=== PATIENT | female | born 1995 ===

== ENCOUNTER 2021-01-06 21:47 | Emergency (ER) | payer BC ==
[2021-01-06 22:56] VITALS: BP 117/79
[2021-01-07 00:36] LABS: HCG Qualitative,Urine Negative (Negative)
[2021-01-07 00:37] LABS: Bilirubin,Urine NEG (Negative); Blood,Urine LG (Negative); Color,Urine Yellow (Yellow); Mucus,Urine FEW /HPF; Urobilinogen,Urine < 2.0 mg/dL (<2.0)
[2021-01-07 00:39] LABS: RBC,Urine > 182.0 /HPF (0.0-6.0)
--- NOTE | 2021-01-07 01:02 | Emergency Department Report ---
ED General Adult HPI - General Chief complaint: Upper Respiratory Infection Stated complaint: CHILLS SWEATS DIZZINESS COUGH Source: patient Mode of arrival: Ambulatory Limitations: No Limitations - History of Present Illness Initial comments: Patient is a nulliparous 25-year-old female with no past medical history presents to the ED with complaint of acute onset persistent diffuse body aches and pains, generalized weakness and fatigue, nasal and sinus congestion, mild dry cough with nausea and chills as well as headache for the last 5 days. Patient states that she had a negative COVID-19 test results 24 hours ago but her symptoms have been persistent. Patient denies dizziness, syncope, nausea and vomiting, chest pain, shortness of breath, sore throat, abdominal pain, dysuria, urinary frequency and urgency, fever or low back pain. MD Complaint: Flu like symptoms; generalized weakness, chills, headache -: Sudden, days(s) (5) Location: head, chest, abdomen Radiation: non-radiation Severity scale (0 -10): 3 Quality: aching, dull Consistency: intermittent Improves with: none Worsens with: none Associated Symptoms: denies other symptoms, cough, headaches, loss of appetite, malaise, nausea/vomiting. denies: confusion, chest pain, diaphoresis, fever/chills, rash, seizure, shortness of breath, syncope, weakness Treatments Prior to Arrival: none - Related Data Previous Rx's Medication Instructions Recorded Last Taken Type Famotidine [Pepcid] 20 mg PO BID #40 tablet 01/07/21 Unknown Rx Ibuprofen [Motrin] 600 mg PO Q8H PRN #24 tablet 01/07/21 Unknown Rx Ondansetron [Zofran Odt] 4 mg PO Q6HR PRN #15 tab.rapdis 01/07/21 Unknown Rx Allergies Allergy/AdvReac Type Severity Reaction Status Date / Time No Known Allergies Allergy Unverified 01/06/21 22:50 ED Review of Systems ROS: Stated complaint: CHILLS SWEATS DIZZINESS COUGH Other details as noted in HPI Constitutional: malaise, weakness Eyes: denies: eye pain, eye discharge, vision change ENT: congestion. denies: ear pain, throat pain Respiratory: cough. denies: shortness of breath, wheezing Cardiovascular: denies: chest pain, palpitations Endocrine: no symptoms reported Gastrointestinal: nausea. denies: abdominal pain, vomiting, diarrhea Genitourinary: denies: urgency, dysuria, frequency, discharge Musculoskeletal: denies: back pain, joint swelling, arthralgia Skin: denies: rash, lesions Neurological: headache. denies: weakness, paresthesias Psychiatric: denies: anxiety, depression Hematological/Lymphatic: denies: easy bleeding, easy bruising ED Past Medical Hx - Past Medical History Previous Medical History?: Yes Additional medical history: ovarian cysts - Surgical History Past Surgical History?: No - Social History Smoking Status: Current Every Day Smoker Substance Use Type: None - Medications Home Medications: Home Medications Medication Instructions Recorded Confirmed Last Taken Type Famotidine [Pepcid] 20 mg PO BID #40 tablet 01/07/21 Unknown Rx Ibuprofen [Motrin] 600 mg PO Q8H PRN #24 tablet 01/07/21 Unknown Rx Ondansetron [Zofran Odt] 4 mg PO Q6HR PRN #15 tab.rapdis 01/07/21 Unknown Rx ED Physical Exam - General Limitations: No Limitations General appearance: alert, in no apparent distress - Head Head exam: Present: atraumatic, normocephalic, normal inspection - Eye Eye exam: Present: normal appearance, PERRL, EOMI Pupils: Present: normal accommodation - ENT ENT exam: Present: normal exam, normal orophraynx, mucous membranes moist, TM's normal bilaterally, normal external ear exam - Neck Neck exam: Present: normal inspection, full ROM - Respiratory Respiratory exam: Present: normal lung sounds bilaterally. Absent: respiratory distress, wheezes, rales, stridor, chest wall tenderness, accessory muscle use, prolonged expiratory - Cardiovascular Cardiovascular Exam: Present: regular rate, normal rhythm, normal heart sounds. Absent: systolic murmur, diastolic murmur, rubs, gallop - GI/Abdominal GI/Abdominal exam: Present: soft, normal bowel sounds. Absent: tenderness, guarding, rebound, hyperactive bowel sounds, hypoactive bowel sounds, organomegaly - Extremities Exam Extremities exam: Present: normal inspection, full ROM, normal capillary refill - Back Exam Back exam: Present: normal inspection, full ROM. Absent: tenderness, CVA tenderness (R), CVA tenderness (L), muscle spasm, paraspinal tenderness, vertebral tenderness - Neurological Exam Neurological exam: Present: alert, oriented X3, CN II-XII intact, normal gait, reflexes normal - Psychiatric Psychiatric exam: Present: normal affect, normal mood, anxious - Skin Skin exam: Present: warm, dry, intact, normal color. Absent: rash ED Course Vital Signs 01/06/21 22:53 Temperature 98.9 F Pulse Rate 98 H Respiratory 16 Rate Blood Pressure 117/79 O2 Sat by Pulse 100 Oximetry ED Medical Decision Making - Radiology Data [facility] [address] [place] [address] XRay Report Signed Patient: RADHA FRIEND MR#: [id number] : 1995 Acct:[id number] Age/Sex: 25 / F ADM Date: 01/06/21 Loc: ED Attending Dr: Ordering Physician: ANA CORONA Date of Service: 01/06/21 Procedure(s): XR chest 1V ap Accession Number(s): [id number] cc: ANA CORONA Fluoro Time In Minutes: CHEST 1 VIEW INDICATION / CLINICAL INFORMATION: cough. FINDINGS: SUPPORT DEVICES: None. HEART / MEDIASTINUM: No significant abnormality. LUNGS / PLEURA: No significant pulmonary or pleural abnormality. No p neumothorax. ADDITIONAL FINDINGS: No significant additional findings. IMPRESSION: 1. No acute findings. Signer Name: Todd Bishop MD Signed: 01/07/2021 1:03 AM Workstation Name: [id number] Transcribed By: ARVIN Dictated By: Todd Bishop MD Electronically Authenticated By: Todd Bishop MD Signed Date/Time: 01/07/21102 DD/ 2 TD/TT: - Medical Decision Making This is a nulliparous 25-year-old female with no past medical history presents to the ED with complaint of acute onset persistent diffuse body aches and pains, generalized weakness and fatigue, nasal and sinus congestion, mild dry cough with nausea and chills as well as headache for the last 5 days. Patient states that she had a negative COVID-19 test results 24 hours ago but her symptoms have been persistent. In the ED, patient is alert and oriented x3 and is not in any distress. Patient is hemodynamically stable. Urinalysis unremarkable except for gross blood in urine due to patient's current menstrual cycle. Chest x-ray showed no acute cardiopulmonary abnormalities or pneumonitis. Patient was therefore discharged home on medications and advised to follow-up with her primary care physician in 5 to 7 days for reevaluation since her symptoms are likely viral. Patient was advised return to the ED immediately if symptoms get worse. - Differential Diagnosis UTI; Covid-19; Pneumonia; URI; GERD Critical care attestation.: If time is entered above; I have spent that time in minutes in the direct care of this critically ill patient, excluding procedure time. ED Disposition Clinical Impression: Acute upper respiratory infection, Acute viral syndrome Disposition: HOME / SELF CARE / HOMELESS Is pt being admited?: No Does the pt Need Aspirin: No Condition: Stable Instructions: Viral Respiratory Infection, [id number], Upper Respiratory Infection, Adult, [id number] Additional Instructions: All lab test results were reviewed and are all nonactionable. Chest x-ray showed no acute cardiopulmonary abnormalities or pneumonitis. Although your symptoms are likely viral, it may also be due to allergic rhinitis or acid reflux. Therefore take medications with food, drink plenty of fluids and follow-up with your primary care physician in 5 to 7 days for reevaluation. Return to the ED immediately if symptoms get worse. Prescriptions: Ibuprofen [Motrin] 600 mg PO Q8H PRN #24 tablet PRN Reason: Pain Famotidine [Pepcid] 20 mg PO BID #40 tablet Ondansetron [Zofran Odt] 4 mg PO Q6HR PRN #15 tab.rapdis PRN Reason: Nausea Referrals: [facility] [Provider Group] - 3-5 Days Forms: Work/School Release Form(ED) Time of Disposition: 01:00 Print Language: DIVEHI
--- NOTE | 2021-01-07 01:08 | XRay Report ---
CHEST 1 VIEW INDICATION / CLINICAL INFORMATION: cough. FINDINGS: SUPPORT DEVICES: None. HEART / MEDIASTINUM: No significant abnormality. LUNGS / PLEURA: No significant pulmonary or pleural abnormality. No pneumothorax. ADDITIONAL FINDINGS: No significant additional findings. IMPRESSION: 1. No acute findings. Signer Name: Todd Bishop MD Signed: 01/07/2021 1:03 AM Workstation Name: [id number]
== END 2021-01-07 01:20 | disposition home or self-care (01) ==
LOC: ED 21:47
DX: J06.9 Acute upper respiratory infection, unspecified (principal); B34.9 Viral infection, unspecified
CPT/HCPCS: 71045; 81001; 81025; 87086; 99283